=== PATIENT | male | born 1950 | race Caucasian/White ===

== ENCOUNTER 2018-03-06 15:20 | Emergency (ER) | payer MEDICARE, OTHER ==
[~2018-03-06] VITALS: Ht 180.3 cm; Wt 81.6 kg
[~2018-03-06 15:20] MED LIST: ATEN50TA PO; HYDR10TA12 PO; PROP40TA7 PO; SUMA100T PO; TOPI100T PO
[2018-03-06 15:24] VITALS: BP 137/97
== END 2018-03-06 16:42 | disposition home or self-care (01) ==
LOC: ER 15:34
DX: S60.562A Insect bite (nonvenomous) of left hand, initial encounter (principal); S60.561A Insect bite (nonvenomous) of right hand, initial encounter; F41.9 Anxiety disorder, unspecified; G43.909 Migraine, unspecified, not intractable, without status migrainosus; I10 Essential (primary) hypertension; Z60.2 Problems related to living alone; Z98.890 Other specified postprocedural states; W57.XXXA Bitten or stung by nonvenomous insect and other nonvenomous arthropods, initial encounter; Y93.89 Activity, other specified; Y92.89 Other specified places as the place of occurrence of the external cause; Y99.8 Other external cause status; Z88.8 Allergy status to other drugs, medicaments and biological substances
CPT/HCPCS: 73130; 99284; A4606; Z7610